=== PATIENT | female | born 1990 | race Caucasian/White ===

== ENCOUNTER 2016-04-27 20:36 | Emergency (ER) | payer MEDICAID ==
[~2016-04-27 20:36] MED LIST: AMOX-358 PO; SULF1TAB35 PO
== END 2016-04-27 20:39 | disposition left against medical advice (07) ==
LOC: EDUNIT# 20:36 → ER 20:38
DX: H92.12 Otorrhea, left ear (principal); Z53.21 Procedure and treatment not carried out due to patient leaving prior to being seen by health care provider

== ENCOUNTER 2020-01-06 13:53 | Emergency (ER) | payer MEDICAID ==
[~2020-01-06] VITALS: Ht 165.1 cm; Wt 125.5 kg
[2020-01-06 14:52] LABS: BILIRUBIN,URINE 1+ (NEGATIVE); CLARITY,URINE TURBID; COLOR,URINE BROWN; GLUCOSE, URINE (UA) NEGATIVE (NEGATIVE); KETONES,URINE NEGATIVE (NEGATIVE); LEUKOCYTE ESTERASE ,URINE NEGATIVE (NEGATIVE); NITRITE,URINE NEGATIVE (NEGATIVE); PROTEIN,URINE TRACE (NEGATIVE)
[2020-01-06 14:53] LABS: AMORPHOUS SEDIMENT,UR LARGE AMOR URATES /LPF
--- NOTE | 2020-01-06 14:53 | ED General ---
General Chief Complaint: Abdominal/GI Problems Stated Complaint: ABD PAIN; BLOODY STOOL Source of Information: Patient History of Present Illness Date Seen by Provider: Jan 06, 2020 Time Seen by Provider: 14:53 Initial Comments 29 yo female with diarrhea last weekend then had abdominal cramping pain since Thursday and bloody stools today. She has had dark colored urine with some mild dizziness. She has had severe cramping abdominal pain at times. This is been going on since Thursday. She has no fever or chills. She has had no ill contacts. She has had no recent antibiotics. The bloody stools came on today. Allergies and Home Medications Allergies Coded Allergies: Penicillins (Verified Allergy, Severe, RASH, 10/14/15) FAMILY HX ET PT DOES NOT HAVE A PERSONAL HISTORY. Home Medications Amoxicillin/Potassium Clav 1 Each Tablet, 1 EACH PO BID Prescribed by: JOSE R MUNIZ MD on 10/13/15 1741 Azithromycin 500 Mg Tablet, 500 MG PO DAILY Prescribed by: MAXI VIZCARRA on 01/06/20 1649 Dicyclomine HCl 20 Mg Tablet, 20 MG PO QID PRN for abdominal pain Prescribed by: MAXI VIZCARRA on 01/06/20 1649 Sulfamethoxazole/Trimethoprim 1 Each Tablet, 1 EACH PO BID, (Reported) Patient Home Medication List Home Medication List Reviewed: Yes Review of Systems Review of Systems Constitutional: No chills, No fever; malaise EENTM: no symptoms reported Respiratory: no symptoms reported Cardiovascular: no symptoms reported Gastrointestinal: see HPI Genitourinary: see HPI Musculoskeletal: no symptoms reported Skin: no symptoms reported Psychiatric/Neurological: No Symptoms Reported Past Yexmtyx-Qyrvpi-[id number] Hx Past Med/Social Hx: Reviewed Nursing Past Med/Soc Hx Patient Social History Recent Foreign Travel: No Contact w/Someone Who Travel: No Immunizations Up To Date Tetanus Booster (TDap): More than 5yrs Past Medical History Surgeries: No Respiratory: No Cardiac: No Neurological: No Reproductive Disorders: Yes Female Reproductive Disorders: Polycystic Ovarian Dis Genitourinary: No Gastrointestinal: No Musculoskeletal: No Physical Exam Vital Signs Vital Signs - First Documented 01/06/20 13:53 Temp 37.1 Pulse 98 Resp 16 B/P (MAP) 127/79 (95) Pulse Ox 99 O2 Delivery Room Air Capillary Refill : Height, Weight, BMI Height: 5'5" Weight: 200lbs. oz. 90.363177uw; BMI Method:Stated General Appearance: No Apparent Distress, WD/WN HEENT: PERRL/EOMI, Normal ENT Inspection, Pharynx Normal Neck: Full Range of Motion, Normal Inspection, Non Tender, Supple Respiratory: Chest Non Tender, Lungs Clear, Normal Breath Sounds, No Accessory Muscle Use, No Respiratory Distress Cardiovascular: Regular Rate, Rhythm, Normal Peripheral Pulses Gastrointestinal: No Pulsatile Mass, Soft, Abnormal Bowel Sounds (hyperactive), Tenderness (diffuse cramping pain worse with palpation) Rectal: Deferred, Heme Positive Stool (from stool specimen) Back: Normal Inspection, No CVA Tenderness, No Vertebral Tenderness Extremity: Normal Capillary Refill, Normal Inspection, Normal Range of Motion, Non Tender, No Pedal Edema Neurologic/Psychiatric: Alert, Oriented x3, No Motor/Sensory Deficits, Normal Mood/Affect, neon tube bender II-XII Norm as Tested Skin: Normal Color, Warm/Dry Progress/Results/Core Measures Suspected Sepsis SIRS Temperature: Pulse: Respiratory Rate: Laboratory Tests 01/06/20 15:25: White Blood Count 7.1 Blood Pressure / Mean: Laboratory Tests 01/06/20 15:25: Creatinine 0.87, Platelet Count 278, Total Bilirubin 0.5 Results/Orders Lab Results Laboratory Tests Test 01/06/20 14:10 01/06/20 15:25 Range/Units Urine Color BROWN H Urine Clarity TURBID Urine pH 6.0 5-9 Urine Specific Phenix >1.030 1.016-1.022 Urine Protein TRACE H NEGATIVE Urine Glucose (UA) NEGATIVE NEGATIVE Urine Ketones NEGATIVE NEGATIVE Urine Nitrite NEGATIVE NEGATIVE Urine Bilirubin 1+ H NEGATIVE Urine Urobilinogen 0.2 < = 1.0 MG/DL Urine Leukocyte Esterase NEGATIVE NEGATIVE Urine RBC (Auto) 1+ H NEGATIVE Urine RBC NONE /HPF Urine WBC NONE /HPF Urine Crystals PRESENT H /LPF Urine Amorphous Sediment LARGE YONATAN URATES H /LPF Urine Bacteria NONE /HPF Urine Casts NONE /LPF Urine Mucus NEGATIVE /LPF Urine Culture Indicated NO White Blood Count 7.1 4.3-11.0 10^3/uL Red Blood Count 4.98 4.35-5.85 10^6/uL Hemoglobin 14.6 11.5-16.0 G/DL Hematocrit 41 35-52 % Mean Corpuscular Volume 82 80-99 FL Mean Corpuscular Hemoglobin 29 25-34 PG Mean Corpuscular Hemoglobin Concent 36 32-36 G/DL Red Cell Distribution Width 12.4 10.0-14.5 % Platelet Count 278 130-400 10^3/uL Mean Platelet Volume 10.2 7.4-10.4 FL Immature Granulocyte % (Auto) 1 % Neutrophils (%) (Auto) 67 42-75 % Lymphocytes (%) (Auto) 22 12-44 % Monocytes (%) (Auto) 9 0-12 % Eosinophils (%) (Auto) 1 0-10 % Basophils (%) (Auto) 1 0-10 % Neutrophils # (Auto) 4.8 1.8-7.8 X 10^3 Lymphocytes # (Auto) 1.5 1.0-4.0 X 10^3 Monocytes # (Auto) 0.6 0.0-1.0 X 10^3 Eosinophils # (Auto) 0.1 0.0-0.3 10^3/uL Basophils # (Auto) 0.0 0.0-0.1 10^3/uL Immature Granulocyte # (Auto) 0.1 0.0-0.1 10^3/uL Sodium Level 137 135-145 MMOL/L Potassium Level 3.8 3.6-5.0 MMOL/L Chloride Level 100 98-107 MMOL/L Carbon Dioxide Level 25 21-32 MMOL/L Anion Gap 12 5-14 MMOL/L Blood Urea Nitrogen 8 7-18 MG/DL Creatinine 0.87 0.60-1.30 MG/DL Estimat Glomerular Filtration Rate > 60 BUN/Creatinine Ratio 9 Glucose Level 97 70-105 MG/DL Calcium Level 9.2 8.5-10.1 MG/DL Corrected Calcium 9.0 8.5-10.1 MG/DL Total Bilirubin 0.5 0.1-1.0 MG/DL Aspartate Amino Transf (AST/SGOT) 23 5-34 U/L Alanine Aminotransferase (ALT/SGPT) 23 0-55 U/L Alkaline Phosphatase 62 40-136 U/L Total Protein 7.8 6.4-8.2 GM/DL Albumin 4.3 3.2-4.5 GM/DL Lipase 34 8-78 U/L Serum Test, Qualitative NEGATIVE NEGATIVE My Orders Orders - MAXI VIZCARRA MD Ua Culture If Indicated (01/06/20 14:18) Urine Bedside (01/06/20 14:18) Stool Culture (01/06/20 14:18) Fecal Wbc (01/06/20 14:18) C Difficile Ag + Toxin A/B. (01/06/20 14:18) Isolation Central Supply Req (01/06/20 14:18) Fecal Occult Bedside (01/06/20 14:18) Comprehensive Metabolic Panel (01/06/20 14:54) Lipase (01/06/20 14:54) Hcg,Qualitative Serum (01/06/20 14:54) Ed Iv/Invasive Line Start (01/06/20 14:54) Cbc With Automated Diff (01/06/20 14:54) Ns Iv 1000 Ml (Sodium Chloride 0.9%) (01/06/20 14:54) Dicyclomine Injection (Bentyl Injection) (01/06/20 15:20) Ct Abdomen/Pelvis W (01/06/20 15:20) Iohexol Injection (Omnipaque 350 Mg/Ml 1 (01/06/20 15:30) Received Contrast (Hold Metformin- Contr (01/06/20 15:30) Sodium Chloride Flush (Catheter Flush Sy (01/06/20 15:30) Ns (Ivpb) (Sodium Chloride 0.9% Ivpb Bag (01/06/20 15:30) Azithromycin Tablet (Zithromax Tablet) (01/06/20 16:47) Medications Given in ED Current Medications Medications Dose Ordered Sig/Sally Route Start Time Stop Time Status Last Admin Dose Admin Iohexol 100 ml ONCE ONCE IV 01/06/20 15:30 01/06/20 15:31 DC 01/06/20 15:54 100 ML Sodium Chloride 10 ml NEEDED PRN IV 01/06/20 15:30 01/06/20 18:19 DC 01/06/20 15:54 10 ML Sodium Chloride 100 ml ONCE ONCE IV 01/06/20 15:30 01/06/20 15:31 DC 01/06/20 15:54 100 ML Vital Signs/I&O 01/06/20 01/06/20 13:53 17:05 Temp 37.1 36.8 Pulse 98 98 Resp 16 16 B/P (MAP) 127/79 (95) 127/79 Pulse Ox 99 99 O2 Delivery Room Air Room Air Capillary Refill : Progress Note #1: Progress Note check labs with urine and send stool specimens. Stool positive for blood on bedside test. UA shows positive for bilirubin but negative for blood or infection. Progress Note #2: Progress Note UA shows dehydration with elevated specific gravity. Labs do not show anything acute on CBC or Chemistry. CT scan shows some hepatic steatosis and colitis of the descending colon. Will treat with bentyl for cramping, and from review on [employer] medical reference will treat with 3 days of Azithromycin 500 mg daily for bloody diarrhea and colitis. Encourage probiotics to help replace good bacteria in her gut from recent GI illness. Follow up with pcp and may need endoscopy/colonoscopy if not improving or having continued/lingering symptoms. Diagnostic Imaging Diagonstic Imaging: CT Plain Films/CT/US/NM/MRI: abdomen, pelvis Comments [facility] [place], [place] NAME: VINCE HOYT [facility] REC#: [id number] PT STATUS: REG ER : 1990 PHYSICIAN: MAXI VIZCARRA MD ADMIT DATE: 01/06/20/ER FS Draft Date of Exam:01/06/20 CT ABDOMEN/PELVIS W PROCEDURE: CT abdomen and pelvis with contrast. TECHNIQUE: Multiple contiguous axial images were obtained through the abdomen and pelvis after administration of intravenous contrast. Auto Exposure Controls were utilized during the CT exam to meet ALARA standards for radiation dose reduction. All CT scans use one or more of the following dose optimizing techniques: automated exposure control, MA and/or KvP adjustment based on patient size and exam type or iterative reconstruction. INDICATION: Generalized abdominal pain for two days as well as red bloody stools. COMPARISON: No prior study is available for comparison. FINDINGS: The lung bases are clear. The liver demonstrates generalized low density consistent with hepatic steatosis. No discrete liver mass is identified. The gallbladder is unremarkable. No biliary ductal dilatation is seen. The pancreas and spleen are unremarkable. No adrenal mass is detected. Kidneys are unremarkable. Aorta is non-aneurysmal. Bowel loops are normal caliber. No obstruction is identified. There is some questionable wall thickening involving the right colon. Nonspecific colitis cannot be entirely excluded. There is no free fluid or fluid collection identified. Small left ovarian cyst in the left pelvis is noted measuring 2.4 cm. The bladder is decompressed. Uterus is unremarkable. IMPRESSION: 1. Hepatic steatosis. 2. Questionable wall thickening involving the right colon which can be seen with nonspecific colitis. The study is otherwise unremarkable. Dictated on workstation # [id number] Dict: 01/06/20 1604 Trans: 01/06/20 160 OLIVIER [id number] Interpreted by: JENISE SARABIA MD Electronically signed by: Departure Impression Primary Impression: Colitis Additional Impressions: Bloody stools Dehydration Disposition: 01 HOME, SELF-CARE Condition: Stable Departure-Patient Inst. Decision time for Depature: 16:47 Referrals: [facility] (PCP) Primary Care Physician TRISH KASPER APRN (Family) Primary Care Physician Patient Instructions: Dehydration, Adult (DC), Bloody Stools, Adult (DC), Colitis (DC) Add. Discharge Instructions: Stay well hydrated and drink plenty of fluids Follow up with clinic if not improving with medicine and treatment. Use the Bentyl (Dicyclomine) for abdominal pain/cramping. Use the Azithromycin (Zithromax) for colitis and infection. If the bloody stool and abdominal symptoms are not improving you may also need to have a colonoscopy or endoscopy done to further look at your colon and intestines for reasons why you continue to have blood in your stools. Take a Probiotic to help replace the good bacteria with your gut and intestines. All discharge instructions reviewed with patient and/or family. Voiced un derstanding. Scripts Dicyclomine HCl (Dicyclomine HCl) 20 Mg Tablet 20 MG PO QID PRN for abdominal pain for 7 Days, #28 TAB 0 Refills Prov: AMXI VIZCARRA MD 01/06/20 Azithromycin (Azithromycin) 500 Mg Tablet 500 MG PO DAILY for colitis for 2 Days, #2 TAB 0 Refills Prov: MAXI VIZCARRA MD 01/06/20 MAXI VIZCARRA MD Jan 06, 2020 14:53
[2020-01-06] MEDS ORDERED: NS IV 1000 ML 1,000 ML IV STA (14:54)
[2020-01-06] MEDS ORDERED: DICYCLOMINE 10 MG/ML (BENTYL) 2 ML AMP IM STA (15:20)
[2020-01-06] MEDS ORDERED: HOLD METFORMIN - RECEIVED CONTRAST 20 ML VIAL IV SCH (15:30)
[2020-01-06] MEDS ORDERED: NS 100 ML (IVPB) BAG IV ONE (15:30)
[2020-01-06] MEDS ORDERED: CATHETER FLUSH 10 ML SYR IV PRN (15:30)
[2020-01-06] MEDS ORDERED: IOHEXOL 350 MG/ML 100 ML (OMNIPAQUE 350) VIAL IV ONE (15:30)
[2020-01-06 15:45] LABS: HEMATOCRIT 41 % (35-52); HEMOGLOBIN 14.6 G/DL (11.5-16.0); MEAN CORPUSCULAR HEMOGLOBIN 29 PG (25-34); MEAN CORPUSCULAR HGB CONC 36 G/DL (32-36); MEAN CORPUSCULAR VOLUME 82 FL (80-99); WHITE BLOOD COUNT 7.1 10^3/uL (4.3-11.0)
[2020-01-06 15:46] LABS: BASOPHILS % (AUTO) 1 % (0-10); EOSINOPHILS # (AUTO) 0.1 10^3/uL (0.0-0.3); EOSINOPHILS % (AUTO) 1 % (0-10); LYMPHOCYTES # (AUTO) 1.5 X 10^3 (1.0-4.0); LYMPHOCYTES % (AUTO) 22 % (12-44); MEAN PLATELET VOLUME 10.2 FL (7.4-10.4); MONOCYTES # (AUTO) 0.6 X 10^3 (0.0-1.0); MONOCYTES % (AUTO) 9 % (0-12); NEUTROPHILS # (AUTO) 4.8 X 10^3 (1.8-7.8); NEUTROPHILS % (AUTO) 67 % (42-75); PLATELET COUNT 278 10^3/uL (130-400)
[2020-01-06 16:07] LABS: ALANINE AMINOTRANSFERASE 23 U/L (0-55); ALBUMIN 4.3 GM/DL (3.2-4.5); ALKALINE PHOSPHATASE 62 U/L (40-136); BILIRUBIN,TOTAL 0.5 MG/DL (0.1-1.0); BUN/CREATININE RATIO 9; CALCIUM 9.2 MG/DL (8.5-10.1); CREATININE SERUM 0.87 MG/DL (0.60-1.30); GFR ESTIMATED > 60; GLUCOSE 97 MG/DL (70-105); LIPASE 34 U/L (8-78); TOTAL PROTEIN 7.8 GM/DL (6.4-8.2)
--- NOTE | 2020-01-06 16:09 | Diagnostic Imaging Report ---
PROCEDURE: CT abdomen and pelvis with contrast. TECHNIQUE: Multiple contiguous axial images were obtained through the abdomen and pelvis after administration of intravenous contrast. Auto Exposure Controls were utilized during the CT exam to meet ALARA standards for radiation dose reduction. All CT scans use one or more of the following dose optimizing techniques: automated exposure control, MA and/or KvP adjustment based on patient size and exam type or iterative reconstruction. INDICATION: Generalized abdominal pain for two days as well as red bloody stools. COMPARISON: No prior study is available for comparison. FINDINGS: The lung bases are clear. The liver demonstrates generalized low density consistent with hepatic steatosis. No discrete liver mass is identified. The gallbladder is unremarkable. No biliary ductal dilatation is seen. The pancreas and spleen are unremarkable. No adrenal mass is detected. Kidneys are unremarkable. Aorta is non-aneurysmal. Bowel loops are normal caliber. No obstruction is identified. There is some questionable wall thickening involving the right colon. Nonspecific colitis cannot be entirely excluded. There is no free fluid or fluid collection identified. Small left ovarian cyst in the left pelvis is noted measuring 2.4 cm. The bladder is decompressed. Uterus is unremarkable. IMPRESSION: 1. Hepatic steatosis. 2. Questionable wall thickening involving the right colon which can be seen with nonspecific colitis. The study is otherwise unremarkable. Dictated by: Dictated on workstation # [id number]
[2020-01-06 16:15] LABS: CARBON DIOXIDE 25 MMOL/L (21-32); CHLORIDE 100 MMOL/L (98-107); POTASSIUM 3.8 MMOL/L (3.6-5.0); SODIUM 137 MMOL/L (135-145)
[2020-01-06] MEDS ORDERED: AZITHROMYCIN 250 MG TAB (ZITHROMAX) PO STA (16:47)
[2020-01-06] MEDS ORDERED: DICY20TA10 PO (16:49)
[2020-01-06] MEDS ORDERED: AZIT500T9 PO (16:49)
[2020-01-06 17:05] VITALS: BP 127/79
== END 2020-01-06 17:05 | disposition home or self-care (01) ==
LOC: EDUNIT# 13:53 → ER FS 13:55
DX: K52.9 Noninfective gastroenteritis and colitis, unspecified (principal); K92.1 Melena; E86.0 Dehydration; Z88.0 Allergy status to penicillin
CPT/HCPCS: 36415; 74177; 80053; 81000; 82274; 83690; 84703; 85025; 87015; 87045; 87046; 87324; 87449; 87899

== ENCOUNTER 2023-01-30 11:24 | Emergency (ER) | payer MEDICAID ==
[~2023-01-30] VITALS: Ht 165 cm; Wt 136.0 kg
[~2023-01-30 11:24] MED LIST changes: +AZIT500T9 PO; +DICY20TA PO; -SULF1TAB35 PO; +SULF1TAB38 PO
[2023-01-30] MEDS ORDERED: ACETAMINOPHEN 500 MG TABLET ONE (12:28)
[2023-01-30] MEDS ORDERED: ACETAMINOPHEN 500 MG TABLET PO ONE ×2 (12:30)
[2023-01-30] MEDS ORDERED: NIRM1TAB PO (12:32)
--- NOTE | 2023-01-30 12:33 | ED General ---
General Chief Complaint: Oral/Throat Problems Stated Complaint: SORE THROAT; FEVER; ACHINESS Nursing Triage Note: ARRIVED VIA AMB WITH COMPLAINTS OF HEADACHE, SORE THROAT, FEVER, AND BODY ACHES STARTING YESTERDAY. Source of Information: Patient Exam Limitations: No Limitations History of Present Illness Date Seen by Provider: Jan 30, 2023 Time Seen by Provider: 11:28 Initial Comments 32-year-old female presents to the ER complaining of headache, body aches, sore throat, fatigue. Symptoms started last night. Also had a fever reportedly 104.9. Took antipyretic at home with improvement. No sick contacts. Works at [employer]. Allergies and Home Medications Allergies Coded Allergies: Penicillins (Verified Allergy, Severe, RASH, 10/14/15) FAMILY HX ET PT DOES NOT HAVE A PERSONAL HISTORY. Patient Home Medication List Home Medication List Reviewed: Yes Amoxicillin/Potassium Clav (Augmentin 875-125 Tablet) 1 Each Tablet, 1 EACH PO BID Prescribed by: JOSE R MUNIZ MD on 10/13/15 1741 Azithromycin (Azithromycin) 500 Mg Tablet, 500 MG PO DAILY Prescribed by: MAXI VIZCARRA on 01/06/20 1649 Dicyclomine HCl (Dicyclomine HCl) 20 Mg Tablet, 20 MG PO QID PRN for abdominal pain Prescribed by: MAXI VIZCARRA on 01/06/20 1649 Sulfamethoxazole/Trimethoprim (Bactrim Ds Tablet) 1 Each Tablet, 1 EACH PO BID, (Reported) Entered as Reported by: JHONATAN OSPINA on 10/13/15 1623 Review of Systems Review of Systems Constitutional: see HPI (All other systems negative except as documented in HPI.) Past Fseruii-[id number]-[id number] Hx Patient Social History Tobacco Use?: No Substance use?: No Alcohol Use?: No Immunizations Up To Date Tetanus Booster (TDap): More than 5yrs Seasonal Allergies Seasonal Allergies: No Past Medical History Surgeries: No Respiratory: No Cardiac: No Neurological: No Reproductive Disorders: Yes Female Reproductive Disorders: Polycystic Ovarian Dis Genitourinary: No Gastrointestinal: No Musculoskeletal: No Endocrine: No Cancer: No Psychosocial: No Integumentary: No Blood Disorders: No Physical Exam Vital Signs Vital Signs - First Documented 01/30/23 11:30 Temp 38.1 Pulse 108 Resp 16 B/P (MAP) 122/87 (99) Pulse Ox 98 O2 Delivery Room Air Capillary Refill : Less Than 3 Seconds Height, Weight, BMI Height: 5'5" Weight: 200lbs. oz. 90.603255eo; 49.00 BMI Method:Stated General Appearance: No Apparent Distress, WD/WN Eyes: Bilateral Eye Normal Inspection, Bilateral Eye PERRL, Bilateral Eye EOMI HEENT: PERRL/EOMI, TMs Normal, Normal ENT Inspection, Other (Mild posterior pharynx erythema) Neck: Full Range of Motion, Normal Inspection, Non Tender, Supple, Carotid Bruit Respiratory: Chest Non Tender, Lungs Clear, Normal Breath Sounds, No Accessory Muscle Use, No Respiratory Distress Cardiovascular: Regular Rate, Rhythm, No Edema, No Gallop, No JVD, No Murmur, Normal Peripheral Pulses Gastrointestinal: Normal Bowel Sounds, No Organomegaly, No Pulsatile Mass, Non Tender, Soft Back: Normal Inspection, No CVA Tenderness, No Vertebral Tenderness Extremity: Normal Capillary Refill, Normal Inspection, Normal Range of Motion, Non Tender, No Calf Tenderness, No Pedal Edema Neurologic/Psychiatric: Alert, Oriented x3, No Motor/Sensory Deficits, Normal Mood/Affect Skin: Normal Color, Warm/Dry Lymphatic: No Adenopathy Progress/Results/Core Measures Suspected Sepsis SIRS Temperature: Pulse: 108 Respiratory Rate: 16 Blood Pressure 122 /87 Mean: 99 Results/Orders Lab Results Laboratory Tests Test 01/30/23 11:33 Range/Units Influenza Type A (RT-PCR) Not Detected Not Detecte Influenza Type B (RT-PCR) Not Detected Not Detecte SARS-CoV-2 RNA (RT-PCR) Detected H Not Detecte My Orders Orders - EMERSON HARPER DO Covid 19 Inhouse Test (01/30/23 12:00) Influenza A And B By Pcr (01/30/23 12:00) Rapid Strep A Screen (01/30/23 12:00) Acetaminophen Tablet (Acetaminophen Ta (01/30/23 12:30) Acetaminophen Tablet (Acetaminophen Ta (01/30/23 12:30) Vital Signs/I&O 01/30/23 11:30 Temp 38.1 Pulse 108 Resp 16 B/P (MAP) 122/87 (99) Pulse Ox 98 O2 Delivery Room Air Capillary Refill : Less Than 3 Seconds Blood Pressure Mean: 99 Progress Note : Time: 12:29 Progress Note Patient with viral upper respiratory symptoms. Positive for COVID, negative for flu. Will treat with Paxlovid. Tylenol for headache. Recommend pushing fluids. Departure Impression Primary Impression: COVID-19 Disposition: 01 HOME, SELF-CARE Condition: Stable Departure-Patient Inst. Decision time for Depature: 12:30 Referrals: ANNE MARIE HARTMANN APRN (PCP) Primary Care Physician [facility] (Family) Primary Care Physician Patient Instructions: COVID-19 (DC) Add. Discharge Instructions: You should push fluids and use Tylenol and/or ibuprofen as needed for fever and body aches. All discharge instructions reviewed with patient and/or family. Voiced understanding. Scripts Nirmatrelvir/Ritonavir (Paxlovid 300-100 mg Pack (Eua)) 300 Mg (150 Mg X 2)-100 Mg Tab.ds.pk 1 EACH PO BID for 5 Days, #1 PKG Prov: EMERSON HARPER DO 01/30/23 EMERSON HARPER DO Jan 30, 2023 12:33
[2023-01-30 12:38] VITALS: BP 100/57
== END 2023-01-30 12:38 | disposition home or self-care (01) ==
LOC: EDUNIT# 11:24 → ER FS 11:26
DX: U07.1 COVID-19 (principal); R50.9 Fever, unspecified; R51.9 Headache, unspecified; R53.83 Other fatigue
CPT/HCPCS: 87430; 87636; 99283